=== PATIENT | female | born 1995 ===

== ENCOUNTER 2021-01-09 17:35 | Outpatient (CLI) | payer OTHER ==
[~2021-01-09] VITALS: Ht 165.1 cm; Wt 92.8 kg
[2021-01-09 17:50] VITALS: BP 115/63
[2021-01-09] MEDS ORDERED: CETI10TA49 PO (18:01)
[2021-01-09] MEDS ORDERED: PREN-98 PO (18:01)
[2021-01-09 18:06] LABS: BILIRUBIN,URINE NEGATIVE (NEGATIVE); CLARITY,URINE CLEAR; COLOR,URINE YELLOW; GLUCOSE, URINE (UA) NEGATIVE (NEGATIVE); KETONES,URINE NEGATIVE (NEGATIVE); LEUKOCYTE ESTERASE ,URINE 2+ (NEGATIVE); NITRITE,URINE NEGATIVE (NEGATIVE); PROTEIN,URINE NEGATIVE (NEGATIVE)
[2021-01-09] MEDS ORDERED: BETAMETHASONE ACE/NA PHOS 6 MG/ML (CELESTONE SOLUSPAN) ONE (18:07)
[2021-01-09] MEDS ORDERED: D5 LR IV SOLUTION 1,000 ML IV ONE (18:08)
[2021-01-09] MEDS ORDERED: MAGNESIUM SULFATE DRIP 500 ML IV ONE (18:08)
[2021-01-09] MEDS ORDERED: MAGNESIUM 4 GM/100 ML IVPB 100 ML IV ONE (18:08)
[2021-01-09 18:17] LABS: BACTERIA,URINE TRACE /HPF; WBC,URINE 25-50 /HPF
[2021-01-09] MEDS ORDERED: WATER (STERILE) FOR INJECTION 20 ML ONE (18:28)
[2021-01-09] MEDS ORDERED: AMPICILLIN 2,000 MG/14.8 ML (IV USE) ONE (18:28)
[2021-01-09] MEDS ORDERED: BETAMETHASONE ACE/NA PHOS 6 MG/ML (CELESTONE SOLUSPAN) IM SCH (18:30)
[2021-01-09] MEDS ORDERED: MAGNESIUM 2 GM/50 ML IVPB 50 ML IV ONE (18:34)
[2021-01-09 18:49] VITALS: BP 124/66
[2021-01-09] MEDS ORDERED: AZITHROMYCIN 250 MG TAB (ZITHROMAX) PO ONE (18:53)
--- NOTE | 2021-01-09 18:56 | History & Physical ---
History and Physical Date Seen by Provider: Jan 09, 2021 Time Seen by Provider: 18:30 This is an admit H&P as well as a discharge summary This patient is a 25-year-old female patient of Dr. Ybarra for whom I am covering. This patient reports having no problems with her to date . she presented at 1740 with complaint of rupture membranes at 1630. Amnio swab was positive per nurse. There was pooling and clayton amniotic fluid oozing from the vagina. Cervical exam shows cervix 5 cm dilated with a vertex presentation. Bedside sono confirms vertex presentation I was called at about 1820 and arrived within 10 minutes. Orders were given to start an IV obtain a CBC and type and screen. 12 mg of betamethasone IM, 6 g of magnesium IV bolus followed by 2 g an hour, 2 g of ampicillin IV, [address] of [address] p[address]o. Place a Izquierdo catheter. I have reviewed the patient with Dr. Ely at [facility] who agrees to accept the patient in transfer. Patient agrees to be transferred to [facility] in [place]. 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 There is no Homans' sign. Bedside ultrasound demonstrated a vertex presentation with no significant remaining amniotic fluid. Urinary bladder was markedly distended but Izquierdo catheter has since been placed Lab work is pending. Orders is as noted above Assessment and plan 25-year-old at 26 weeks gestation with P PROM. We are monitoring for progression of her contractions which do seem to have picked up a bit since she is presented however she is only now receiving the magnesium providing her contractions do not cause significant change in her cervix and do not progress into obvious labor we will proceed with transfer to [facility] to the care of Dr. Ely We appreciate Dr. Ely agreeing to accept this patient. 26-week with P PROM Allergies and Home Medications Allergies Coded Allergies: No Known Drug Allergies (Unverified , 01/09/21) Home Medications Cetirizine HCl 10 Mg Tablet, 10 MG PO ONCE, (Reported) Vit37/Iron/Folic Acid 1 Each Tab.chew, 1 EACH PO DAILY, (Reported) Patient Home Medication List Home Medication List Reviewed: Yes BERTO LOPEZ MD Jan 09, 2021 18:56
[2021-01-09 18:57] VITALS: BP 120/62
[2021-01-09 19:06] LABS: BASOPHILS % (AUTO) 0 % (0-10); EOSINOPHILS # (AUTO) 0.1 10^3/uL (0.0-0.3); EOSINOPHILS % (AUTO) 1 % (0-10); HEMATOCRIT 38 % (35-52); HEMOGLOBIN 12.4 g/dL (11.5-16.0); LYMPHOCYTES # (AUTO) 1.8 10^3/uL (1.0-4.0); LYMPHOCYTES % (AUTO) 12 % (12-44); MEAN CORPUSCULAR HEMOGLOBIN 30 pg (25-34); MEAN CORPUSCULAR HGB CONC 32 g/dL (32-36); MEAN CORPUSCULAR VOLUME 93 fL (80-99); MEAN PLATELET VOLUME 10.9 fL (9.0-12.2); MONOCYTES # (AUTO) 1.2 10^3/uL (0.0-1.0); MONOCYTES % (AUTO) 8 % (0-12); NEUTROPHILS # (AUTO) 11.8 10^3/uL (1.8-7.8); NEUTROPHILS % (AUTO) 79 % (42-75); PLATELET COUNT 239 10^3/uL (130-400)
[2021-01-09 19:32] LABS: EOSINOPHILS % (MANUAL) 1 %; LYMPHOCYTES % (MANUAL) 9 %; MONOCYTES % (MANUAL) 9 %; NEUTROPHILS % (MANUAL) 81 %; RBC MORPH NORMAL
[2021-01-09] MEDS ORDERED: MAGNESIUM 2 GM/50 ML IVPB 2 GM in MAGNESIUM 4 GM/100 ML IVPB 100 ML IV ONE (20:15)
[2021-01-09] MEDS ORDERED: AZITHROMYCIN 250 MG TAB (ZITHROMAX) PO NR (20:15)
[2021-01-09] MEDS ORDERED: CALCIUM GLUC. 10% 4.65 MEQ/10 ML VIAL IV PRN (20:15)
[2021-01-09] MEDS ORDERED: AMPICILLIN FOR IV USE 2,000 MG in WATER (STERILE) FOR INJECTION 14.8 ML IV NR (20:15)
[2021-01-09] MEDS ORDERED: D5 LR IV SOLUTION 1,000 ML IV SCH (20:15)
[2021-01-09] MEDS ORDERED: MAGNESIUM SULFATE DRIP 500 ML IV SCH (20:15)
[2021-01-09 22:03] LABS: AMPHETAMINE SCREEN, URINE NEGATIVE (NEGATIVE); BARBITURATE SCREEN URINE NEGATIVE (NEGATIVE); BENZODIAZEPINES SCREEN URINE NEGATIVE (NEGATIVE); CANNABINOID SCREEN, URINE NEGATIVE (NEGATIVE); COCAINE SCREEN URINE NEGATIVE (NEGATIVE); METHADONE STAT NEGATIVE (NEGATIVE); METHAMPHETAMINE SCREEN URINE S NEGATIVE (NEGATIVE); OPIATE SCREEN URINE NEGATIVE (NEGATIVE); OXYCODONE STAT NEGATIVE (NEGATIVE); PROPOXYPHENE STAT NEGATIVE (NEGATIVE); TRICYCLIC ANTIDEPRESSANTS SCRE NEGATIVE (NEGATIVE)
== END 2021-01-09 19:17 ==
LOC: WSo 17:35 → LDRP 17:36 → WSo 19:17
PROVIDERS: ATTEND Obstetrics & Gynecology
DX: O42.012 Preterm premature rupture of membranes, onset of labor within 24 hours of rupture, second trimester (principal); Z3A.26 26 weeks gestation of pregnancy
CPT/HCPCS: 36415; 80306; 81000; 85007; 85027; 86850; 86900; 86901; 96361; 96372; 96374; 96375; 96376; 99214